=== PATIENT | female | born 1985 | race Caucasian/White ===

== ENCOUNTER 2016-11-05 14:42 | Emergency (ER) | payer OTHER ==
[~2016-11-05] VITALS: Ht 124.5 cm; Wt 69.8 kg
[~2016-11-05 14:42] MED LIST: LEVAQUIN500 MG PO; TYLENOL WITH C1 EACH PO
[2016-11-05 15:10] VITALS: BP 115/89
[2016-11-05] MEDS ORDERED: NAPROXEN500 MG PO (15:29)
[2016-11-05] MEDS ORDERED: FLEXERIL10 MG PO (15:29)
[2016-11-05] MEDS ORDERED: SKELAXIN800 MG PO (15:51)
== END 2016-11-05 16:12 | disposition home or self-care (01) ==
LOC: EME → EDBD 14:42 → EME 16:12
DX: S43.52XA Sprain of left acromioclavicular joint, initial encounter (principal); X50.3XXA Overexertion from repetitive movements, initial encounter; Y93.61 Activity, american tackle football
CPT/HCPCS: 73030; 99281; 99284

== ENCOUNTER 2017-01-27 18:43 | Emergency (ER) | payer OTHER ==
[~2017-01-27] VITALS: Ht 154.9 cm; Wt 71.9 kg
[~2017-01-27 18:43] MED LIST changes: +FLEXERIL10 MG PO; +NAPROXEN500 MG PO; +SKELAXIN800 MG PO
[2017-01-27 20:13] LABS: MCH 27.9 PG (29.0-34.0); MCHC 31.8 G/DL (30.0-36.0); MCV 87.7 FL (83-99); RBC DIS.WIDTH-CV 13.2 % (11.8-14.6); RBC DIS.WIDTH-SD 42.8 % (39-53); RED BLOOD COUNT 5.13 M/uL (3.80-5.20); WHITE BLOOD COUNT 10.9 K/uL (4.1-10.2)
[2017-01-27 20:14] LABS: MEAN PLAT.VOLUME 11.8 uM^3 (9.5-12.4); PLATELET COUNT 184 K/uL (156-360)
[2017-01-27 20:25] LABS: CHLORIDE 108 mEq/L (99-109); POTASSIUM 3.7 mEq/L (3.7-5.4); SODIUM 141 mEq/L (136-147)
[2017-01-27 20:27] LABS: GLUCOSE 89 mg/dL (70-99)
[2017-01-27 20:28] LABS: ANION GAP 11 MEQ/L (2-14)
[2017-01-27 20:29] LABS: TOTAL BILIRUBIN 0.4 mg/dL (0.0-1.0)
[2017-01-27 20:31] LABS: ALKALINE PHOSPHATASE 43 IU/L (3-129); GFR ESTIMATE (CALCULATED) > 59 mL/min/
[2017-01-27 20:32] LABS: UREA NITROGEN (BUN) 9 mg/dL (9-23)
[2017-01-27 20:34] LABS: LIPASE 40 U/L (1.0-51.0)
[2017-01-27 20:46] LABS: ADD MIUA? YES; BILIRUBIN NEGATIVE; BLOOD NEGATIVE; COLOR YELLOW ((YELLOW)); GLUCOSE (STRIP) NEGATIVE; KETONES NEGATIVE; LEUKOCYTES NEGATIVE; NITRITE NEGATIVE; PROTEIN (STRIP) NEGATIVE; SPECIFIC GRAVITY 1.023 (1.000-1.030); UROBILINOGEN 0.2 MG/DL (0.2-1.0)
[2017-01-27 20:55] LABS: BACTERIA NONE SEEN /HPF; EPITHELIAL CELLS 1+ /HPF; MUCUS TRACE /LPF; RED BLOOD CELLS 0-5 /HPF (0-5); WHITE BLOOD CELLS 0-5 /HPF (0-5)
[2017-01-27] MEDS ORDERED: BENTYL20 MG PO (22:11)
[2017-01-27] MEDS ORDERED: OMEPRAZOLE40 M1 PO (22:11)
[2017-01-27 22:26] VITALS: BP 114/77
== END 2017-01-27 22:25 | disposition home or self-care (01) ==
LOC: EME 18:43
PROVIDERS: Physician Assistant
DX: R10.13 Epigastric pain (principal); R10.11 Right upper quadrant pain; K21.9 Gastro-esophageal reflux disease without esophagitis; Z87.891 Personal history of nicotine dependence
CPT/HCPCS: 76705; 80053; 81003; 83690; 85027; 99281; 99284; J2270

== ENCOUNTER 2017-04-28 10:10 | Emergency (ER) | payer OTHER ==
[~2017-04-28] VITALS: Ht 154.9 cm; Wt 67.4 kg
[~2017-04-28 10:10] MED LIST changes: +BENTYL20 MG PO; +OMEPRAZOLE40 M1 PO
[2017-04-28 10:46] LABS: HEMATOCRIT 44.6 % (36.0-46.0); MCH 28.4 PG (29.0-34.0); MCV 86.1 FL (83-99); RBC DIS.WIDTH-CV 12.4 % (11.8-14.6); RED BLOOD COUNT 5.18 M/uL (3.80-5.20); WHITE BLOOD COUNT 6.9 K/uL (4.1-10.2)
[2017-04-28 10:59] LABS: CHLORIDE 107 mEq/L (99-109); POTASSIUM 4.1 mEq/L (3.7-5.4); SODIUM 141 mEq/L (136-147)
[2017-04-28 11:01] LABS: GLUCOSE 99 mg/dL (70-99)
[2017-04-28 11:02] LABS: ANION GAP 11 MEQ/L (2-14)
[2017-04-28 11:03] LABS: TOTAL BILIRUBIN 0.5 mg/dL (0.0-1.0)
[2017-04-28 11:05] LABS: ALKALINE PHOSPHATASE 46 IU/L (3-129); GFR ESTIMATE (CALCULATED) > 59 mL/min/
[2017-04-28 11:06] LABS: UREA NITROGEN (BUN) 13 mg/dL (9-23)
[2017-04-28 11:08] LABS: COLOR YELLOW ((YELLOW)); LEUKOCYTES NEGATIVE; NITRITE NEGATIVE; SPECIFIC GRAVITY 1.025 (1.000-1.030)
[2017-04-28 11:09] LABS: ADD MIUA? YES; BILIRUBIN NEGATIVE; BLOOD LARGE; GLUCOSE (STRIP) NEGATIVE; KETONES NEGATIVE; PROTEIN (STRIP) 30; UROBILINOGEN 0.2 MG/DL (0.2-1.0)
[2017-04-28 11:13] LABS: BACTERIA NONE SEEN /HPF; EPITHELIAL CELLS 1+ /HPF; MUCUS TRACE /LPF; UCUL ADDED? NO; WHITE BLOOD CELLS 0-5 /HPF (0-5)
[2017-04-28 11:14] LABS: URINE COMMENT MIUA ON UNSPUN URINE
[2017-04-28 11:15] LABS: QUANTITATIVE HCG < 4.0 MIU/ML
[2017-04-28 11:23] LABS: MEAN PLAT.VOLUME 11.6 uM^3 (9.5-12.4); PLAT.SUFFICIENCY ADEQUATE; PLATELET COUNT 212 K/uL (156-360)
[2017-04-28] MEDS ORDERED: KEFLEX500 MG PO (13:07)
[2017-04-28] MEDS ORDERED: ZOFRAN ODT4 MG PO (13:07)
[2017-04-28] MEDS ORDERED: MOTRIN800 MG PO (13:07)
[2017-04-28] MEDS ORDERED: PERCOCET 5/31 TABLET PO (13:08)
[2017-04-28 13:28] VITALS: BP 110/83
== END 2017-04-28 13:41 | disposition home or self-care (01) ==
LOC: EME 10:10
DX: R10.9 Unspecified abdominal pain (principal); R31.9 Hematuria, unspecified; R11.2 Nausea with vomiting, unspecified; R30.0 Dysuria; Z87.442 Personal history of urinary calculi; Z87.440 Personal history of urinary (tract) infections; Z87.891 Personal history of nicotine dependence
CPT/HCPCS: 74176; 80053; 81003; 84702; 85027; 87086; 99281; 99285; J1885

== ENCOUNTER 2017-04-30 10:00 | Emergency (ER) | payer OTHER ==
[~2017-04-30] VITALS: Ht 154.9 cm; Wt 67.0 kg
[~2017-04-30 10:00] MED LIST changes: +KEFLEX500 MG PO; +MOTRIN800 MG PO; +PERCOCET 5/31 TABLET PO; +ZOFRAN ODT4 MG PO
[2017-04-30 11:17] LABS: EOSINOPHIL (%) 0.7 % (0-5); HEMATOCRIT 40.9 % (36.0-46.0); IMMATURE GRANULOCYTE (%) 0.3 % (0.0-0.7); INSTRUMENT ABS NEUTROPHIL CT 3.3 K/uL; LYMPHOCYTE COUNT 2.3 K/uL (1.0-2.8); MCH 28.5 PG (29.0-34.0); MCHC 33.3 G/DL (30.0-36.0); MCV 85.6 FL (83-99); MEAN PLAT.VOLUME 11.1 uM^3 (9.5-12.4); MONOCYTE (%) 7.5 % (3-12); MONOCYTE COUNT 0.5 K/uL (0-0.8); NEUTROPHIL (%) 54.2 % (45-76); NEUTROPHIL COUNT 3.3 K/uL (1.8-6.4); PLATELET COUNT 189 K/uL (156-360); RBC DIS.WIDTH-CV 12.3 % (11.8-14.6); RBC DIS.WIDTH-SD 38.5 % (39-53); RED BLOOD COUNT 4.78 M/uL (3.80-5.20); WHITE BLOOD COUNT 6.1 K/uL (4.1-10.2)
[2017-04-30 11:24] LABS: CHLORIDE 110 mEq/L (99-109); POTASSIUM 3.8 mEq/L (3.7-5.4); SODIUM 142 mEq/L (136-147)
[2017-04-30 11:26] LABS: GLUCOSE 87 mg/dL (70-99)
[2017-04-30 11:27] LABS: ANION GAP 8 MEQ/L (2-14)
[2017-04-30 11:30] LABS: GFR ESTIMATE (CALCULATED) > 59 mL/min/
[2017-04-30 11:31] LABS: UREA NITROGEN (BUN) 9 mg/dL (9-23)
[2017-04-30 13:42] LABS: ADD MIUA? YES; BILIRUBIN NEGATIVE; BLOOD NEGATIVE; COLOR YELLOW ((YELLOW)); GLUCOSE (STRIP) NEGATIVE; KETONES NEGATIVE; LEUKOCYTES NEGATIVE; NITRITE NEGATIVE; PROTEIN (STRIP) 30; SPECIFIC GRAVITY 1.014 (1.000-1.030); UROBILINOGEN 0.2 MG/DL (0.2-1.0)
[2017-04-30 13:46] LABS: BACTERIA RARE /HPF; EPITHELIAL CELLS 1+ /HPF; HYALINE CASTS 0-5 /LPF; MUCUS 1+ /LPF; RED BLOOD CELLS 0-5 /HPF (0-5); UCUL ADDED? NO; URIC ACID CRYSTALS 1+ /HPF; WHITE BLOOD CELLS 0-5 /HPF (0-5)
[2017-04-30] MEDS ORDERED: PERCOCET 5/31 TABLET PO (14:49)
[2017-04-30 15:41] VITALS: BP 114/79
== END 2017-04-30 15:42 | disposition home or self-care (01) ==
LOC: EME 10:00
PROVIDERS: Emergency Medicine
DX: R10.30 Lower abdominal pain, unspecified (principal); R11.0 Nausea; Z87.440 Personal history of urinary (tract) infections; Z87.891 Personal history of nicotine dependence
CPT/HCPCS: 76856; 80048; 81003; 85025; 99281; 99284; J1885; J2270; J2405; J7030

== ENCOUNTER 2017-05-21 14:56 | Emergency (ER) | payer OTHER ==
[~2017-05-21] VITALS: Ht 154.9 cm; Wt 68.9 kg
[2017-05-21 15:00] VITALS: BP 102/74
[2017-05-21] MEDS ORDERED: MOTRIN800 MG PO (15:55)
== END 2017-05-21 16:12 | disposition home or self-care (01) ==
LOC: EME 14:56
DX: S93.602A Unspecified sprain of left foot, initial encounter (principal); W17.89XA Other fall from one level to another, initial encounter; Y93.01 Activity, walking, marching and hiking
CPT/HCPCS: 73630; 99281; 99284

== ENCOUNTER 2017-07-31 19:02 | Emergency (ER) | payer OTHER ==
[~2017-07-31] VITALS: Ht 154.9 cm; Wt 69.2 kg
[2017-07-31 19:23] LABS: HEMATOCRIT 42.6 % (36.0-46.0); MCH 28.8 PG (29.0-34.0); MCHC 33.6 G/DL (30.0-36.0); MCV 85.9 FL (83-99); RBC DIS.WIDTH-CV 12.8 % (11.8-14.6); RBC DIS.WIDTH-SD 39.7 % (39-53); RED BLOOD COUNT 4.96 M/uL (3.80-5.20)
[2017-07-31 19:31] LABS: CHLORIDE 108 mEq/L (99-109); POTASSIUM 4.6 mEq/L (3.7-5.4); SODIUM 138 mEq/L (136-147)
[2017-07-31 19:33] LABS: GLUCOSE 93 mg/dL (70-99)
[2017-07-31 19:35] LABS: ANION GAP 6 MEQ/L (2-14); TOTAL BILIRUBIN 0.4 mg/dL (0.0-1.0)
[2017-07-31 19:37] LABS: ALKALINE PHOSPHATASE 47 IU/L (3-129); GFR ESTIMATE (CALCULATED) > 59 mL/min/
[2017-07-31 19:38] LABS: UREA NITROGEN (BUN) 11 mg/dL (9-23)
[2017-07-31 19:48] LABS: QUANTITATIVE HCG < 4.0 MIU/ML
[2017-07-31 19:53] LABS: ADD MIUA? YES; BILIRUBIN NEGATIVE; BLOOD NEGATIVE; COLOR YELLOW ((YELLOW)); GLUCOSE (STRIP) NEGATIVE; KETONES 5; LEUKOCYTES TRACE; NITRITE NEGATIVE; PROTEIN (STRIP) NEGATIVE; SPECIFIC GRAVITY 1.021 (1.000-1.030)
[2017-07-31 19:59] LABS: MEAN PLAT.VOLUME 11.5 uM^3 (9.5-12.4); PLAT.SUFFICIENCY ADEQUATE; PLATELET COUNT 177 K/uL (156-360)
[2017-07-31 19:59] LABS: BACTERIA RARE /HPF; EPITHELIAL CELLS 1+ /HPF; MUCUS TRACE /LPF; UCUL ADDED? NO; WHITE BLOOD CELLS 0-5 /HPF (0-5)
[2017-07-31] MEDS ORDERED: MOTRIN800 MG PO (21:09)
[2017-07-31] MEDS ORDERED: CIPRO500 MG PO (21:09)
[2017-07-31 21:32] VITALS: BP 126/68
== END 2017-07-31 21:33 | disposition home or self-care (01) ==
LOC: EME 19:02
PROVIDERS: Physician Assistant
DX: N20.0 Calculus of kidney (principal); F17.200 Nicotine dependence, unspecified, uncomplicated; Z91.040 Latex allergy status; Z88.5 Allergy status to narcotic agent
CPT/HCPCS: 74176; 80053; 81003; 84702; 85027; 87086; 99281; 99284; J1885

== ENCOUNTER 2017-08-11 09:15 | Emergency (ER) | payer OTHER ==
[~2017-08-11] VITALS: Ht 154.9 cm; Wt 68.6 kg
[~2017-08-11 09:15] MED LIST changes: +CIPRO500 MG PO
[2017-08-11 10:13] LABS: ADD MIUA? YES; BILIRUBIN SMALL; BLOOD MODERATE; COLOR AMBER ((YELLOW)); GLUCOSE (STRIP) NEGATIVE; KETONES 5; LEUKOCYTES SMALL; NITRITE NEGATIVE; PROTEIN (STRIP) 100; SPECIFIC GRAVITY 1.038 (1.000-1.030)
[2017-08-11 10:25] LABS: HEMATOCRIT 37.1 % (36.0-46.0); MCH 28.8 PG (29.0-34.0); MCHC 33.7 G/DL (30.0-36.0); MCV 85.5 FL (83-99); MEAN PLAT.VOLUME 11.5 uM^3 (9.5-12.4); PLATELET COUNT 156 K/uL (156-360); RBC DIS.WIDTH-CV 12.6 % (11.8-14.6); RBC DIS.WIDTH-SD 39.4 % (39-53); RED BLOOD COUNT 4.34 M/uL (3.80-5.20); WHITE BLOOD COUNT 8.2 K/uL (4.1-10.2)
[2017-08-11 10:34] LABS: CHLORIDE 105 mEq/L (99-109); POTASSIUM 3.4 mEq/L (3.7-5.4); SODIUM 139 mEq/L (136-147)
[2017-08-11 10:36] LABS: GLUCOSE 106 mg/dL (70-99)
[2017-08-11 10:38] LABS: ANION GAP 11 MEQ/L (2-14); TOTAL BILIRUBIN 0.3 mg/dL (0.0-1.0)
[2017-08-11 10:40] LABS: ALKALINE PHOSPHATASE 41 IU/L (3-129); GFR ESTIMATE (CALCULATED) > 59 mL/min/
[2017-08-11 10:40] LABS: BACTERIA 1+ /HPF; EPITHELIAL CELLS 2+ /HPF; MUCUS 3+ /LPF; RED BLOOD CELLS 15-20 /HPF (0-5); UCUL ADDED? YES
[2017-08-11 10:41] LABS: UREA NITROGEN (BUN) 8 mg/dL (9-23)
[2017-08-11 10:54] LABS: QUANTITATIVE HCG < 4.0 MIU/ML
[2017-08-11] MEDS ORDERED: BACTRIM,SEPT1 TABLET PO (12:29)
[2017-08-11] MEDS ORDERED: TORADOL10 MG PO (12:29)
[2017-08-11 12:38] VITALS: BP 105/71
== END 2017-08-11 13:27 | disposition home or self-care (01) ==
LOC: EME 09:15
DX: N39.0 Urinary tract infection, site not specified (principal); R10.9 Unspecified abdominal pain; Z87.442 Personal history of urinary calculi; Z87.440 Personal history of urinary (tract) infections; F17.200 Nicotine dependence, unspecified, uncomplicated; Z88.5 Allergy status to narcotic agent; Z91.040 Latex allergy status
CPT/HCPCS: 76770; 80053; 81003; 84702; 85027; 87086; 99281; 99285; J1885; J7030

== ENCOUNTER 2017-08-12 14:02 | Emergency (ER) | payer OTHER ==
[~2017-08-12 14:02] MED LIST changes: +BACTRIM,SEPT1 TABLET PO; +TORADOL10 MG PO
== END 2017-08-12 15:32 | disposition left against medical advice (07) ==
LOC: EME 14:02
DX: R50.9 Fever, unspecified (principal); R42 Dizziness and giddiness; Z53.21 Procedure and treatment not carried out due to patient leaving prior to being seen by health care provider

== ENCOUNTER 2017-08-14 09:02 | Emergency (ER) | payer OTHER ==
[~2017-08-14] VITALS: Ht 154.9 cm; Wt 65.8 kg
[2017-08-14 10:05] LABS: EOSINOPHIL (%) 0.2 % (0-5); HEMATOCRIT 35.6 % (36.0-46.0); IMMATURE GRANULOCYTE (%) 0.5 % (0.0-0.7); INSTRUMENT ABS NEUTROPHIL CT 6.4 K/uL; LYMPHOCYTE COUNT 0.9 K/uL (1.0-2.8); MCHC 33.1 G/DL (30.0-36.0); MCV 84.6 FL (83-99); MEAN PLAT.VOLUME 11.4 uM^3 (9.5-12.4); MONOCYTE (%) 10.7 % (3-12); MONOCYTE COUNT 0.9 K/uL (0-0.8); NEUTROPHIL COUNT 6.4 K/uL (1.8-6.4); PLATELET COUNT 147 K/uL (156-360); RBC DIS.WIDTH-CV 12.7 % (11.8-14.6); RBC DIS.WIDTH-SD 38.7 % (39-53); RED BLOOD COUNT 4.21 M/uL (3.80-5.20); WHITE BLOOD COUNT 8.2 K/uL (4.1-10.2)
[2017-08-14 10:16] LABS: CHLORIDE 108 mEq/L (99-109); POTASSIUM 3.3 mEq/L (3.7-5.4); SODIUM 140 mEq/L (136-147)
[2017-08-14 10:18] LABS: GLUCOSE 104 mg/dL (70-99)
[2017-08-14 10:19] LABS: ANION GAP 8 MEQ/L (2-14)
[2017-08-14 10:21] LABS: TOTAL BILIRUBIN 0.4 mg/dL (0.0-1.0)
[2017-08-14 10:22] LABS: ALKALINE PHOSPHATASE 37 IU/L (3-129); GFR ESTIMATE (CALCULATED) > 59 mL/min/
[2017-08-14 10:23] LABS: UREA NITROGEN (BUN) 10 mg/dL (9-23)
[2017-08-14 10:25] LABS: LIPASE 28 U/L (1.0-51.0)
[2017-08-14 10:33] LABS: QUANTITATIVE HCG < 4.0 MIU/ML
[2017-08-14 10:41] LABS: ADD MIUA? YES; BILIRUBIN NEGATIVE; BLOOD MODERATE; COLOR YELLOW ((YELLOW)); GLUCOSE (STRIP) NEGATIVE; KETONES 20; LEUKOCYTES NEGATIVE; NITRITE NEGATIVE; PROTEIN (STRIP) 30; SPECIFIC GRAVITY 1.021 (1.000-1.030)
[2017-08-14 10:48] LABS: BACTERIA RARE /HPF; CALCIUM OXALATE CRYSTALS 2+ /HPF; EPITHELIAL CELLS RARE /HPF; MUCUS 2+ /LPF; WHITE BLOOD CELLS 0-5 /HPF (0-5)
[2017-08-14] MEDS ORDERED: BENTYL20 MG PO (11:19)
[2017-08-14] MEDS ORDERED: ZOFRAN4 MG PO ×2 (11:19→11:23)
[2017-08-14] MEDS ORDERED: ABREVA2 GM TP (11:19)
[2017-08-14 11:34] VITALS: BP 103/70
== END 2017-08-14 11:35 | disposition home or self-care (01) ==
LOC: EME 09:02
PROVIDERS: Emergency Medicine
DX: R10.9 Unspecified abdominal pain (principal); R11.2 Nausea with vomiting, unspecified; B00.1 Herpesviral vesicular dermatitis; Z87.891 Personal history of nicotine dependence; Z88.5 Allergy status to narcotic agent; Z91.040 Latex allergy status
CPT/HCPCS: 80053; 81003; 83690; 84702; 85025; 99281; 99284; J2405; J7030

== ENCOUNTER 2017-10-12 13:14 | Emergency (ER) | payer OTHER ==
[~2017-10-12] VITALS: Ht 154.9 cm; Wt 66.7 kg
[~2017-10-12 13:14] MED LIST changes: +ABREVA2 GM TP; +ZOFRAN4 MG PO
[2017-10-12 13:52] LABS: APPEARANCE SL.HAZY ((CLEAR)); BILIRUBIN NEGATIVE; BLOOD NEGATIVE; COLOR YELLOW ((YELLOW)); GLUCOSE (STRIP) NEGATIVE; KETONES NEGATIVE; LEUKOCYTES NEGATIVE; NITRITE NEGATIVE; PROTEIN (STRIP) 30; SPECIFIC GRAVITY 1.027 (1.000-1.030); UROBILINOGEN 0.2 MG/DL (0.2-1.0)
[2017-10-12 13:55] LABS: BACTERIA RARE /HPF; EPITHELIAL CELLS 3+ /HPF; MUCUS 3+ /LPF; UCUL ADDED? NO; WHITE BLOOD CELLS 0-5 /HPF (0-5)
[2017-10-12 14:02] LABS: HEMOGLOBIN 13.7 G/DL (11.9-15.5); MCHC 33.4 G/DL (30.0-36.0); MCV 86.7 FL (83-99); RBC DIS.WIDTH-CV 12.9 % (11.8-14.6); RBC DIS.WIDTH-SD 40.7 % (39-53); RED BLOOD COUNT 4.73 M/uL (3.80-5.20); WHITE BLOOD COUNT 6.5 K/uL (4.1-10.2)
[2017-10-12 14:07] LABS: PLATELET COUNT 177 K/uL (156-360)
[2017-10-12 14:14] LABS: CHLORIDE 112 mEq/L (99-109); POTASSIUM 3.8 mEq/L (3.7-5.4); SODIUM 143 mEq/L (136-147)
[2017-10-12 14:15] LABS: GLUCOSE 78 mg/dL (70-99)
[2017-10-12 14:19] LABS: CREATININE 0.8 mg/dL (0.6-1.3); GFR ESTIMATE (CALCULATED) > 59 mL/min/
[2017-10-12 14:20] LABS: UREA NITROGEN (BUN) 10 mg/dL (9-23)
[2017-10-12] MEDS ORDERED: MOTRIN800 MG PO (15:23)
[2017-10-12 15:31] VITALS: BP 117/70
== END 2017-10-12 15:40 | disposition home or self-care (01) ==
LOC: EME 13:14
DX: R10.2 Pelvic and perineal pain (principal); R30.0 Dysuria; R31.9 Hematuria, unspecified; Z87.891 Personal history of nicotine dependence; Z91.040 Latex allergy status
CPT/HCPCS: 74176; 80048; 81003; 85027; 99281; 99284

== ENCOUNTER 2018-01-13 06:35 | Emergency (ER) | payer OTHER ==
[~2018-01-13] VITALS: Ht 154.9 cm; Wt 65.8 kg
[2018-01-13 07:00] LABS: HEMATOCRIT 36.1 % (36.0-46.0); HEMOGLOBIN 11.8 G/DL (11.9-15.5); MCH 28.5 PG (29.0-34.0); MCHC 32.7 G/DL (30.0-36.0); MCV 87.2 FL (83-99); RBC DIS.WIDTH-CV 13.2 % (11.8-14.6); RBC DIS.WIDTH-SD 42.6 % (39-53); RED BLOOD COUNT 4.14 M/uL (3.80-5.20); WHITE BLOOD COUNT 6.9 K/uL (4.1-10.2)
[2018-01-13 07:00] LABS: APPEARANCE CLEAR ((CLEAR)); BILIRUBIN NEGATIVE; BLOOD NEGATIVE; COLOR YELLOW ((YELLOW)); GLUCOSE (STRIP) NEGATIVE; KETONES NEGATIVE; LEUKOCYTES NEGATIVE; NITRITE NEGATIVE; PROTEIN (STRIP) NEGATIVE; UCUL ADDED? NO; UROBILINOGEN 0.2 MG/DL (0.2-1.0)
[2018-01-13 07:45] LABS: QUANTITATIVE HCG < 4.0 MIU/ML
[2018-01-13 07:51] LABS: PLATELET COUNT 169 K/uL (156-360)
[2018-01-13 08:11] LABS: ALBUMIN 3.7 G/DL (3.2-4.8); ALKALINE PHOSPHATASE 33 IU/L (3-129); ALT (GPT) 5 IU/L (3-49); AST (GOT) 11 IU/L (2-34); CHLORIDE 110 MEQ/L (99-109); CREATININE 0.7 MG/DL (0.6-1.3); GFR ESTIMATE (CALCULATED) > 59 mL/min/; GLUCOSE 90 mg/dL (70-99); POTASSIUM 3.7 MEQ/L (3.7-5.4); SODIUM 139 MEQ/L (136-147); TOTAL BILIRUBIN 0.3 MG/DL (0.0-1.0); UREA NITROGEN (BUN) 11 mg/dL (9-23)
[2018-01-13] MEDS ORDERED: BENTYL20 MG PO (10:11)
[2018-01-13] MEDS ORDERED: MOTRIN800 MG PO (10:11)
[2018-01-13 10:22] VITALS: BP 118/65
== END 2018-01-13 10:27 | disposition home or self-care (01) ==
LOC: EME 06:35
DX: R10.30 Lower abdominal pain, unspecified (principal); Z87.440 Personal history of urinary (tract) infections; Z98.51 Tubal ligation status; Z88.5 Allergy status to narcotic agent; Z88.8 Allergy status to other drugs, medicaments and biological substances; Z91.040 Latex allergy status
CPT/HCPCS: 74176; 80053; 81003; 84702; 85027; 99281; 99284

== ENCOUNTER 2018-04-21 18:51 | Emergency (ER) | payer OTHER ==
[~2018-04-21] VITALS: Ht 154.9 cm; Wt 62.3 kg
[2018-04-21 18:54] VITALS: BP 114/84
[2018-04-21] MEDS ORDERED: MOTRIN800 MG PO (19:27)
[2018-04-21] MEDS ORDERED: PEN-VEE K,VEET500 MG PO (19:27)
== END 2018-04-21 19:38 | disposition home or self-care (01) ==
LOC: EME 18:51
DX: K02.9 Dental caries, unspecified (principal); F17.200 Nicotine dependence, unspecified, uncomplicated; Z88.5 Allergy status to narcotic agent; Z91.040 Latex allergy status
CPT/HCPCS: 99281; 99284